=== PATIENT | male | born 1995 | race Caucasian/White ===

== ENCOUNTER 2020-06-26 17:11 | Inpatient (IN) | payer MEDICAID, OTHER ==
[2020-06-26] MEDS ORDERED: MAGNESIUM HYDROXIDE 2,400 MG/10 ML CUP PO PRN (22:03)
[2020-06-26] MEDS ORDERED: MAG HYDROX/AL HYDROX/SIMETH 30 ML CUP PO PRN (22:03)
[2020-06-26] MEDS ORDERED: LORazepam 2 MG/ML INJ IM PRN (22:13)
[2020-06-26] MEDS ORDERED: HALOPERIDOL LACTATE 5 MG/ML 1 ML VIAL IM PRN (22:14)
[2020-06-27] MEDS: LORazepam 1 MG TAB PO PRN (00:29)
[2020-06-27] MEDS: haloperidoL 5 MG TAB PO PRN (00:29)
[2020-06-27] MEDS: ACETAMINOPHEN TAB 325 MG TAB PO PRN (00:29)
[2020-06-27] MEDS: NICOTINE 14MG/24HR PATCH TRANSDERM SCH (09:17)
[2020-06-27 09:40] LABS: Basophils % (A) 1 %; Eosinophils # (A) 0.1 k/uL (0-0.7); Eosinophils % (A) 3 %; HCT 34.1 % (39.0-53.0); Lymphocytes # (A) 1.4 k/uL (1.0-4.8); Lymphocytes % (A) 28 %; MCHC 35.3 g/dL (31.0-37.0); MCV 93.4 fL (80.0-100.0); Mean Platelet Volume 6.7; Monocytes # (A) 0.3 k/uL (0-1.0); Monocytes % (A) 5 %; Neutrophils # (A) 3.2 k/uL (1.3-7.7); Neutrophils % (A) 62 %; Platelet Count 303 k/uL (150-450); RBC 3.65 m/uL (4.30-5.90); RDW 13.4 % (11.5-15.5); WBC 5.2 k/uL (3.8-10.6)
[2020-06-27 09:50] LABS: ALT 33 U/L (4-49); AST 33 U/L (17-59); African American GFR (CKD) >90 (>60 ml/min/1.73 sqM); Albumin 3.9 g/dL (3.5-5.0); Alkaline Phosphatase 50 U/L (38-126); Anion Gap 7 mmol/L; Blood Urea Nitrogen 11 mg/dL (9-20); Calcium 9.3 mg/dL (8.4-10.2); Carbon Dioxide 30 mmol/L (22-30); Chloride 103 mmol/L (98-107); Glucose 117 mg/dL (74-99); Non-African American GFR(CKD) >90 (>60 ml/min/1.73 sqM); Sodium 140 mmol/L (137-145); Total Bilirubin 0.2 mg/dL (0.2-1.3); Total Protein 6.3 g/dL (6.3-8.2)
[2020-06-27] MEDS ORDERED: buPROPion XL 300 MG TAB.ER.24H PO STA (10:42)
[2020-06-27] MEDS: OLANZapine 10 MG TAB PO SCH ×3 (11:12→22:01)
[2020-06-27 14:12] LABS: Hemoglobin A1C 4.8 % (4.0-6.0)
--- NOTE | 2020-06-27 15:47 | P.CONS ---
History of Present Illness - Reason for Consult medical clearance - History of Present Illness this is a pleasant 25-year-old male was transferred from [facility] after he was admitted at the other facility for suicide attempt with the Risperdal. Patient was intubated patient was also treated for aspiration pneumonia subsequently patient was medically stable and was subsequently discharged to psychiatric floor here. Patient initial Covid 19 test was positive the later test was negative for Covid 19. Patient is not hypoxic doesn't have any symptoms of Covid 19. Patient has multiple linear lacerations from cutting himself in an attempt to commit suicide in both legs and both arms none of which appear to be infected and there multiple melvin Review of Systems REVIEW OF SYSTEMS: CONSTITUTIONAL: No fever, no malaise, no fatigue. HEENT: No recent visual problems or hearing problems. Denied any sore throat. CARDIOVASCULAR: No chest pain, orthopnea, PND, no palpitations, no syncope. PULMONARY: No shortness of breath, no cough, no hemoptysis. GASTROINTESTINAL: No diarrhea, no nausea, no vomiting, no abdominal pain. NEUROLOGICAL: No headaches, no weakness, no numbness. HEMATOLOGICAL: Denies any bleeding or petechiae. GENITOURINARY: Denies any burning micturition, frequency, or urgency. MUSCULOSKELETAL/RHEUMATOLOGICAL: Denies any joint pain, swelling, or any muscle pain. ENDOCRINE: Denies any polyuria or polydipsia. The rest of the 14-point review of systems is negative. Past Medical History History of Any Multi-Drug Resistant Organisms: None Reported Smoking Status: Current some day smoker Medications and Allergies Home Medications Medication Instructions Recorded Confirmed Type Divalproex ER [Depakote ER] 1,000 mg PO HS 06/27/20 06/27/20 History QUEtiapine [SEROquel] 50 - 100 mg PO HS 06/27/20 06/27/20 History buPROPion HCL [Wellbutrin XL] 300 mg PO DAILY 06/27/20 06/27/20 History hydrOXYzine pamoate [hydrOXYzine 50 mg PO TID PRN 06/27/20 06/27/20 History PAMOATE] rOPINIRole HCL [Requip] 0.5 mg PO HS 06/27/20 06/27/20 History Allergies Allergy/AdvReac Type Severity Reaction Status Date / Time No Known Allergies Allergy Verified 06/27/20 11:01 Physical Exam Vitals: Vital Signs Temp Pulse Pulse Resp BP BP Pulse Ox 06/27/20 13:53 97.7 F 114 H 20 140/63 97 06/26/20 17:30 98.9 F 102 H 17 135/76 Intake and Output 06/27/20 06/27/20 06/27/20 06:59 14:59 22:59 Other: Weight 99.7 kg PHYSICAL EXAMINATION: GENERAL: The patient is alert and oriented x3, not in any acute distress. Well developed, well nourished. HEENT: Pupils are round and equally reacting to light. EOMI. No scleral icterus. No conjunctival pallor. Normocephalic, atraumatic. No pharyngeal erythema. No thyromegaly. CARDIOVASCULAR: S1 and S2 present. No murmurs, rubs, or gallops. PULMONARY: Chest is clear to auscultation, no wheezing or crackles. ABDOMEN: Soft, nontender, nondistended, normoactive bowel sounds. No palpable organomegaly. MUSCULOSKELETAL: No joint swelling or deformity. EXTREMITIES: No cyanosis, clubbing, or pedal edema. NEUROLOGICAL: Gross neurological examination did not reveal any focal deficits. SKIN: multiple linear lacerations and clean cuts as mentioned above Results CBC & Chem 7: 06/27/20 08:56 06/27/20 08:56 Labs: Abnormal Lab Results - Last 24 Hours (Table) 06/27/20 06/27/20 Range/Units 08:56 08:56 RBC 3.65 L (4.30-5.90) m/uL Hgb 12.0 L (13.0-17.5) gm/dL Hct 34.1 L (39.0-53.0) % Glucose 117 H (74-99) mg/dL Assessment and Plan Plan: -major depression and suicide attempt: Management as per primary service. -Aspiration pneumonia patient will need 2 more days of antibiotics to complete a course of antibiotic therapy -Multiple linear lacerations which are [place] which can be removed in 5-7 days all the lacerations appear to be clean -nicotine use
[2020-06-27 17:24] LABS: Chol/HDL Ratio 4.74; Cholesterol 185 mg/dL (0-200); LDL Cholesterol,Calculated 114.6 mg/dL (0.0-131.0)
[2020-06-27] MEDS: QUEtiapine 50 MG TAB PO SCH (21:27)
[2020-06-27] MEDS: AMOXIC-POT CLAV 875-125MG 1 EACH TAB PO SCH (21:27)
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
[2020-06-28] MEDS: OLANZapine 10 MG TAB PO SCH ×3 (08:40→21:25)
[2020-06-28] MEDS: AMOXIC-POT CLAV 875-125MG 1 EACH TAB PO SCH ×2 (08:40→21:24)
[2020-06-28] MEDS: NICOTINE 14MG/24HR PATCH TRANSDERM SCH (08:40)
--- NOTE | 2020-06-28 20:41 | PN ---
PROGRESS NOTE DATE OF SERVICE: 06/28/2020 CHIEF COMPLAINT: The patient had overdosed on Risperdal in a suicide attempt. He was unresponsive when he presented to the hospital and required intubation. INTERVAL HISTORY: Patient has been doing fair. He had a quiet day yesterday. He will come out on the unit some. He tends to walk a little bit now and then, though, spends most of the time in his room. He did make an effort to attend one group yesterday though left early. He says he does do some walking to help calm his thoughts down. He slept fair last night. Today he has been up. Overall, he is doing about the same. He will come out in the day area mostly to do some quiet walking. He attended 2 groups today. He says he is making an effort to get out because he does feel it seems to help his thoughts. He acknowledges that he has had voices that can be quite intrusive. He suggests that the voices told him to cut himself, which led to his having about 70 significant lacerations to his arms and legs all requiring sutures. He feels medications have been helping him. He has a little better outlook, though he acknowledges the changes are not great. He tolerates his psychotropic medications. MENTAL STATUS EXAM: Patient was in his room lying down when I walked in. He sat up on the side of his bed. He gave fairly good eye contact. Psychomotor activity was slowed. Speech was monotone. He answered questions appropriately. He said a few things spontaneously. His affect was flat. It was noteworthy, however, that he was just a little more responsive in the interview and show just a little more change in facial expression in a positive way. He had a very reserved mood and worried manner. He appeared moderately distressed. He continues to show indications of thought disorder. He voiced no thoughts of harm when I talked to him. Cognition was clear. ASSESSMENT: I will continue the current diagnosis and treatment plan. I will continue psychotropic medications the same namely Zyprexa 10 mg 3 times a day and Seroquel 50 mg at bedtime. He is aware of some drug use issues that he has struggled with along with depression and hallucinations. When I made a comment that he seemed to be showing just a little bit more energy and responsiveness, he was in agreement with that. We will focus on stabilization and discharge planning. MMODL / IJN: [id number] /
[2020-06-28] MEDS: QUEtiapine 50 MG TAB PO SCH (21:25)
[2020-06-28] MEDS: haloperidoL 5 MG TAB PO PRN (22:16)
[2020-06-28] MEDS: LORazepam 1 MG TAB PO PRN (22:16)
[2020-06-28] MEDS: ACETAMINOPHEN TAB 325 MG TAB PO PRN (22:16)
[2020-06-29] MEDS: OLANZapine 10 MG TAB PO SCH (08:48)
[2020-06-29] MEDS: NICOTINE 14MG/24HR PATCH TRANSDERM SCH (08:48)
--- NOTE | 2020-06-29 14:21 | P.PN ---
Progress Note - Text Progress Note Date: 06/29/20 Interval History: Patient was seen wandering the hallways and was directable and agreeable to angie hoyos with radio news writer in the office. Patient appears to have a soft tone of voice and multiple lacerations on his forearms with melvin on them. Patient spoke about the circumstances that led him to come to the hospital. He spoke about recently having covid 19 and was being treated at [facility]. He states that he was hearing voices telling him to cut himself and telling him negative things. He states t hat the voices have calmed down and decreased in nature since coming into the hospital. He states that he does feel drowsy during the day. He claims that she was not sleeping well at nighttime. Patient was agreeable to have his medications adjusted. He states that he is still having depression and some anxiety today. At this time patient denies any suicidal or homical ideations, intent or plan. Patient denies any visual hallucinations and denies any delusions. Patient has been compliant with medications. Endorsing mild paranoia. Mental Status Exam: General Appearance: Patient appears to be stated age is alert, directable, and attempts to be cooperative. Constricted affect. Behavior: Patient is calmly seated without any agitated behavior. Somewhat paranoid. Speech: Patient's speech is fluent and nonpressured. Soft Mood/Affect: Mood is improving mildly, affect is congruent and constricted. Suicidality/Homicidality: Patient denies having any suicidal or homicidal ideation intent or plan. Perceptions: Patient denies any visual hallucinations and admits ongoing auditory hallucinations however they have improved. Though content/process: Mild paranoia. [place] and poverty of content. Logical Memory and concentration: AOX3, grossly intact for the purposes of this session Judgment and insight: Poor, Improving mildly Assessment Major depressive disorder, chronic, recurrent and severe with psychotic features Cannabis use disorder Nicotine dependence Plan: -Patient continues to meet criteria for inpatient psychiatric admission for symptom stabilization and safety. Patient has not signed adult voluntary form and was placed in patient's chart. -Medications: Change Zyprexa to 15 mg daily at bedtime +5 mg daily for mood stabilization/psychosis. Added Prozac 20 mg daily for mood/anxiety -When necessary Ativan and Haldol for agitation/aggression. -will obtain another covid send out test and keep patient quarantined in his room until then. -NRT - nicotine patch -SW on board for discharge planning. Encouraged the patient to participate in milieu. Currently awaiting deferral with erisa attorney and court date.
[2020-06-29] MEDS: FLUoxetine HCL 20 MG CAP PO SCH (14:44)
[2020-06-29] MEDS: ACETAMINOPHEN TAB 325 MG TAB PO PRN (20:41)
[2020-06-29] MEDS: OLANZapine 7.5 MG TAB PO SCH (20:42)
[2020-06-30] MEDS: OLANZapine 5 MG TAB PO SCH (08:12)
[2020-06-30] MEDS: FLUoxetine HCL 20 MG CAP PO SCH (08:12)
[2020-06-30] MEDS: NICOTINE 14MG/24HR PATCH TRANSDERM SCH (08:12)
--- NOTE | 2020-06-30 12:09 | P.PN ---
Progress Note - Text Progress Note Date: 06/30/20 Interval History: Patient was seen lying in his bed today and was directable and agreeable to angie hoyos with advertising copy writer in the office. Patient appears to have a soft tone of voice today once again. He claims that the lacerations on his forearms have been gradually healing. He is denying any issues with this at this time. He claims that he is feeling mild improvement in his mood however continues to feel depressed and mild anxiety. He states that he is trying to find a "reason to exist". He was fairly concrete and guarded about the rest of his symptoms. He states that he is not hearing voices today. He claims that he has not gone to groups however we'll attempt to go to group today. He claims that he's been mainly isolating in his room. He continues to claim that he feels mildly tired during the day. He claims that he slept a bit better last night. Patient was agreeable to have his medications adjusted. At this time patient denies any suicidal or homical ideations, intent or plan. Patient denies any visual hallucinations and denies any delusions. Patient has been compliant with medications. Not endorsing paranoid today. Mental Status Exam: General Appearance: Patient appears to be stated age is alert, directable, and attempts to be cooperative. Constricted affect. Behavior: Patient is calmly seated without any agitated behavior. Somewhat paranoid. Speech: Patient's speech is fluent and nonpressured. Soft Mood/Affect: Mood is improving mildly, affect is congruent and constricted. Suicidality/Homicidality: Patient denies having any suicidal or homicidal ideation intent or plan. 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 Though content/process: Mild paranoia. [place] and poverty of content. Logical Memory and concentration: AOX3, grossly intact for the purposes of this session Judgment and insight: Poor, Improving mildly Assessment Major depressive disorder, chronic, recurrent and severe with psychotic features Cannabis use disorder Nicotine dependence Plan: -Patient continues to meet criteria for inpatient psychiatric admission for symptom stabilization and safety. Patient has signed adult voluntary form and was placed in patient's chart. -Medications: Decreased Zyprexa to 15 mg daily at bedtime for mood stabilization/psychosis. Increased Prozac 40 mg daily for mood/anxiety -When necessary Ativan and Haldol for agitation/aggression. -NRT - nicotine patch -SW on board for discharge planning. Encouraged the patient to participate in milieu. Likely discharge in 2-3 days.
[2020-06-30] MEDS: OLANZapine 7.5 MG TAB PO SCH (20:49)
[2020-06-30] MEDS: ACETAMINOPHEN TAB 325 MG TAB PO PRN (20:50)
[2020-07-01] MEDS: NICOTINE 14MG/24HR PATCH TRANSDERM SCH (09:28)
[2020-07-01] MEDS: FLUoxetine HCL 20 MG CAP PO SCH (09:29)
[2020-07-01] MEDS: OLANZapine 5 MG TAB PO SCH (09:29)
--- NOTE | 2020-07-01 10:59 | P.PN ---
Progress Note - Text Progress Note Date: 07/01/20 Interval History: Patient was seen wandering the hallways this morning and was directable and ag reeable to speak with curriculum writer in the office. Patient appears to be more visible on the unit today and was also more calm and appropriate with curriculum writer. He claims that he is feeling that the melvin in his arm have been itching him more and he claims that he wants to see if they can be removed today. He is denying any issues with this at this time. He claims that he is feeling improvement in his mood today and anxiety. He claims that the voices have subsided at this time and is denying any paranoia. He claims that he has been making an effort to go to group and participate as best as he can. He continues to claim that he feels mildly tired during the day. He claims that he slept a bit better last night. Patient was agreeable to have his medications adjusted. At this time patient denies any suicidal or homical ideations, intent or plan. Patient denies any visual hallucinations and denies any delusions. Patient has been compliant with medications. Not endorsing paranoid today. Mental Status Exam: General Appearance: Patient appears to be stated age is alert, directable, and attempts to be cooperative. Constricted affect. Behavior: Patient is calmly seated without any agitated behavior. Speech: Patient's speech is fluent and nonpressured. Mood/Affect: Mood is improving mildly, affect is congruent and constricted. Suicidality/Homicidality: Patient denies having any suicidal or homicidal ideation intent or plan. Perceptions: Patient denies any visual hallucinations and admits ongoing auditory hallucinations however they have improved. Though content/process: Mild paranoia. [place] and poverty of content. Logical Memory and concentration: AOX3, grossly intact for the purposes of this session Judgment and insight: Improving mildly Assessment Major depressive disorder, chronic, recurrent and severe with psychotic features Cannabis use disorder Nicotine dependence Plan: -Patient continues to meet criteria for inpatient psychiatric admission for symptom stabilization and safety. Patient has signed adult voluntary form and was placed in patient's chart. -Medications: Decreased Zyprexa to 15 mg daily at bedtime for mood stabilization/psychosis and discontinue daytime dose. Continue with Prozac 40 mg daily for mood/anxiety -When necessary Ativan and Haldol for agitation/aggression. -Medicine to calm and have the melvin removed in his forearms. -NRT - nicotine patch -SW on board for discharge planning. Encouraged the patient to participate in milieu. Likely discharge back home tomorrow.
[2020-07-01] MEDS: ACETAMINOPHEN TAB 325 MG TAB PO PRN (19:51)
[2020-07-01] MEDS: OLANZapine 7.5 MG TAB PO SCH (20:56)
[2020-07-01] MEDS: LORazepam 1 MG TAB PO PRN (22:30)
[2020-07-02 06:23] VITALS: BP 100/47; PULSE 48; RESP 16; TEMP 98
[2020-07-02] MEDS: FLUoxetine HCL 20 MG CAP PO SCH (08:45)
[2020-07-02] MEDS: NICOTINE 14MG/24HR PATCH TRANSDERM SCH (08:45)
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
== END 2020-07-02 13:33 | disposition home or self-care (01) | DRG 885 ==
LOC: 3MHU 17:12
PROVIDERS: ADMIT Psychiatry & Neurology Psychiatry; ATTEND Psychiatry & Neurology Psychiatry
DX: F33.3 Major depressive disorder, recurrent, severe with psychotic symptoms (principal); F11.90 Opioid use, unspecified, uncomplicated; F12.10 Cannabis abuse, uncomplicated; F17.200 Nicotine dependence, unspecified, uncomplicated; F41.9 Anxiety disorder, unspecified; G47.00 Insomnia, unspecified; J45.909 Unspecified asthma, uncomplicated; T43.592A Poisoning by other antipsychotics and neuroleptics, intentional self-harm, initial encounter; Z79.899 Other long term (current) drug therapy; Z20.822 Contact with and (suspected) exposure to COVID-19
CPT/HCPCS: 80053; 80061; 83036; 84443; 85025; 87635